=== PATIENT | female | born 1965 | race Asian ===

== ENCOUNTER 2022-10-05 14:04 | Outpatient (REF) | payer OTHER, SELFPAY | END 2022-10-05 14:05 | disposition home or self-care (01) | LOC: HO.MDS 14:04 | PROVIDERS: Visit Provider Internal Medicine | DX: D50.9 Iron deficiency anemia, unspecified (principal) | CPT/HCPCS: 96365; J1756 ==

== ENCOUNTER 2022-10-07 14:00 | Outpatient (REF) | payer OTHER, SELFPAY | END 2022-10-07 14:01 | disposition home or self-care (01) | LOC: HO.MDS 14:00 | PROVIDERS: Visit Provider Internal Medicine | DX: D50.8 Other iron deficiency anemias (principal) | CPT/HCPCS: 96365; J1756 ==

== ENCOUNTER 2022-10-09 11:07 | Outpatient (REF) | payer OTHER, SELFPAY | END 2022-10-09 11:08 | disposition home or self-care (01) | LOC: HO.MDS 11:07 | PROVIDERS: Visit Provider Internal Medicine | DX: D50.8 Other iron deficiency anemias (principal) | CPT/HCPCS: 96365; J1756 ==

== ENCOUNTER 2022-10-12 13:46 | Outpatient (REF) | payer OTHER, SELFPAY | END 2022-10-12 13:47 | disposition home or self-care (01) | LOC: HO.MDS 13:46 | PROVIDERS: Visit Provider Internal Medicine | DX: D50.8 Other iron deficiency anemias (principal) | CPT/HCPCS: 96365; J1756 ==

== ENCOUNTER 2022-10-16 13:50 | Outpatient (REF) | payer OTHER, SELFPAY | END 2022-10-16 13:51 | disposition home or self-care (01) | LOC: HO.MDS 13:50 | PROVIDERS: Visit Provider Internal Medicine | DX: D50.8 Other iron deficiency anemias (principal) | CPT/HCPCS: 96365; J1756 ==

== ENCOUNTER 2022-10-19 13:21 | Outpatient (REF) | payer OTHER, SELFPAY | END 2022-10-19 13:22 | disposition home or self-care (01) | LOC: HO.MDS 13:21 | PROVIDERS: Visit Provider Internal Medicine | DX: D50.8 Other iron deficiency anemias (principal) | CPT/HCPCS: 96365; J1756 ==

== ENCOUNTER 2023-02-09 08:21 | Day surgery (SDC) | payer OTHER, SELFPAY ==
[2023-02-04 15:41] VITALS: BMI 25.5
[2023-02-09 08:33] VITALS: BMI 25.0
[2023-02-09 08:42] VITALS: BP 138/74; PULSE 79; RESP 18; TEMP 36.1; O2SAT 99
--- NOTE | 2023-02-09 08:47 | HO.ANESPROP2 ---
Documented by User: Karen Farrar MD 02/09/23 09:07 HPI - Anesthesia Eval Consult details Narrative: upper endo and colon PMFSH Past Medical History Medical History Bipolar disorder Iron deficiency anemia HTN (hypertension) Diabetes Family History Family history of problems with anesthesia: No Surgical History Surgical History H/O colonoscopy History of Problems with Anesthesia: No Social History Social History Patient Tobacco Use Status: Never used Tobacco Use of substances other than those prescribed or required for medical reasons: No Advance Directives: No Advance Directives Information Provided: Yes Meds Allergies Allergy/AdvReac Type Severity Reaction Status Date / Time No Known Allergies Allergy Verified 02/04/23 15:40 Home Medications Medication Instructions Recorded Confirmed Last Taken Type amlodipine 5 mg tablet 5 mg PO DAILY 02/04/23 02/09/23 02/09/23 07:00 History 5 aripiprazole 5 mg tablet 2.5 mg PO DAILY 02/04/23 02/04/23 Unknown History cyanocobalamin (vitamin B-12) 500 500 mcg PO DAILY 02/04/23 02/04/23 Unknown History mcg tablet (Vitamin B-12) ferrous sulfate 325 mg (65 mg 325 mg PO 3XW 02/04/23 02/04/23 Unknown History iron) tablet glipizide 2.5 mg tablet, extended 2.5 mg PO DAILY 02/04/23 02/04/23 Unknown History release 24 hr losartan 100 1 tab PO DAILY 02/04/23 02/04/23 Unknown History mg-hydrochlorothiazide 25 mg tablet metformin 1,000 mg tablet 1,000 mg PO BID 02/04/23 02/04/23 Unknown History Exam Airway Mallampati Class: II TM Dist: >3cm Neck ROM: Full Heart: rrr Lungs: cta Assessment and Plan Assessment Anesthesia Assessment: Anesthesia Plan Discussed and Chart Reviewed Final Anesthetic Review Family History of Problems with Anesthesia: No History of Problems with Anesthesia: No NPO: Yes ASA Class: II Final Preanesthetic Review: No Changes in Pt Med Stat, Meds/Allgs Chart Reviewed, Consent Obtained/Reviewed and Anes Risks/Benef Reviewed Patient Risk: Low Procedure Risk: Low Anesthetic Plan Anesthetic Plan: MAC: Disposition: Standard PACU Documented by User: Ayesha Chilel MD [facility] Past Medical History Medical History Bipolar disorder Iron deficiency anemia HTN (hypertension) Diabetes Surgical History Surgical History H/O colonoscopy Social History Social History Patient Tobacco Use Status: Never used Tobacco Use of substances other than those prescribed or required for medical reasons: No Advance Directives: No Advance Directives Information Provided: Yes Meds Allergies Allergy/AdvReac Type Severity Reaction Status Date / Time No Known Allergies Allergy Verified 02/04/23 15:40 Home Medications Medication Instructions Recorded Confirmed Last Taken Type amlodipine 5 mg tablet 5 mg PO DAILY 02/04/23 02/09/23 02/09/23 07:00 History 5 aripiprazole 5 mg tablet 2.5 mg PO DAILY 02/04/23 02/04/23 Unknown History cyanocobalamin (vitamin B-12) 500 500 mcg PO DAILY 02/04/23 02/04/23 Unknown History mcg tablet (Vitamin B-12) ferrous sulfate 325 mg (65 mg 325 mg PO 3XW 02/04/23 02/04/23 Unknown History iron) tablet glipizide 2.5 mg tablet, extended 2.5 mg PO DAILY 02/04/23 02/04/23 Unknown History release 24 hr losartan 100 1 tab PO DAILY 02/04/23 02/04/23 Unknown History mg-hydrochlorothiazide 25 mg tablet metformin 1,000 mg tablet 1,000 mg PO BID 02/04/23 02/04/23 Unknown History Exam Height,Weight and Vital Signs: Height 5 ft 5 in Weight 68.039 kg Last Vital Signs Temp 97 F 11/21/23 08:42 Pulse 79 02/09/23 08:42 Resp 18 02/09/23 08:42 BP 138/74 02/09/23 08:42 Pulse Ox 99 02/09/23 08:42 O2 Del Method Room Air 02/09/23 08:42
--- NOTE | 2023-02-09 09:10 | MHC.SHP ---
Pre-Procedural Eval Section A Date of Service: 02/09/23 Section B Chief Complaint: Iron deficiency anemia, unspecified Details of Present Illness: see H&P no changes Relevant Family History (Specify if Yes): No Relevant Social History: None Present Medications: see Short Stay Collaborative assessment Medical History: No relevant PMH History of Previous Operations: No relevant previous surgery Allergies: Allergies Allergy/AdvReac Type Severity Reaction Status Date / Time No Known Allergies Allergy Verified 02/04/23 15:40 Review of Systems Sugical H&P ROS: Negative: Constitution, Cardiovascular, Respiratory, Neurological, Psychiatric, Hem-Onc, Allergic/Immunologic, Gastrointestinal, Genitourinary, Musculoskeletal, Integumentary, Endocrine and Eyes/Ears/Nose/Throat Exam Surgical H&P Exam: Normal: HEENT, Normal: Heart, Normal: Lungs, Normal: Extremities, Normal: Abdomen, Normal: Skin and Normal: Neurological Plan Diagnosis/Plan: Unchanged I have reviewed the history and physical and performed a pertinent physical examination on my patient. No changes have occurred unless specified. Time Spent With Patient Time: Total time managing care of this patient today ____ minutes.
[2023-02-09 09:50] VITALS: BP 91/64; PULSE 81; RESP 18; TEMP 36.1; O2SAT 100
[2023-02-09 10:05] VITALS: BP 117/76; PULSE 82; RESP 16; O2SAT 98
[2023-02-09 10:20] VITALS: BP 127/65; PULSE 70; RESP 16; TEMP 36.2; O2SAT 98
--- NOTE | 2023-02-09 10:20 | OP_ITS ---
DATE OF SERVICE: 02/09/2023 SURGEON: Armani German MD INDICATIONS: Iron deficiency anemia. PREOPERATIVE DIAGNOSIS: POSTOPERATIVE DIAGNOSIS: PROCEDURE PERFORMED: Upper endoscopy with biopsy, colonoscopy to the terminal ileum. ESTIMATED BLOOD LOSS: COMPLICATIONS: ANESTHESIA: Monitored anesthesia care. ASSISTANTS: SPECIMENS: DESCRIPTION OF PROCEDURE: A history and physical performed. The risks and benefits of the procedure were explained to the patient. Informed consent was obtained. The patient was placed in the left lateral decubitus position. The Olympus video gastroscope was introduced into the esophagus, stomach, and duodenum. Examination was performed. The scope was removed. She was repositioned for colonoscopy. Digital rectal exam was performed and was found to be normal. The Olympus pediatric video colonoscope was introduced into the rectum and advanced to the cecum. The cecum was identified by transillumination, palpation, and identification of ileocecal valve. Examination was performed and the scope was removed. She tolerated both procedures well and was returned to recovery area in stable condition. FINDINGS: Upper endoscopy: 1. Esophagus: The esophagus was normal. There was no esophagitis. 2. Stomach: The stomach was normal. There was no gastritis. Antral biopsies were obtained to evaluate for H pylori. 3. Duodenum: The bulb and 2nd portion were normal. Random biopsies were obtained from the 2nd portion. Colonoscopy: The terminal ileum was normal. The visualized colonic mucosa was normal. The quality of the prep was good. No polyps were identified. Retroflexed examination showed some small internal hemorrhoids. IMPRESSION: 1. Normal upper endoscopy. 2. Normal colonoscopy. RECOMMENDATION: Follow up the biopsy results. 10 year screening colonoscopy. MD EULA Campos/DESMONDL / [id number] MTDD
== END 2023-02-09 10:43 | disposition home or self-care (01) ==
PROVIDERS: PCP Internal Medicine; Visit Provider Internal Medicine Gastroenterology
PROC: (CPT 43239; principal; 2023-02-09 09:30)
DX: D50.9 Iron deficiency anemia, unspecified (principal); Z12.11 Encounter for screening for malignant neoplasm of colon; K64.8 Other hemorrhoids; E11.9 Type 2 diabetes mellitus without complications; I10 Essential (primary) hypertension; Z79.899 Other long term (current) drug therapy
CPT/HCPCS: 43239; 45378; 88305; 88342; J2250; J2704

== ENCOUNTER 2023-07-26 06:09 | Day surgery (SDC) | payer OTHER, SELFPAY ==
--- NOTE | 2023-07-22 14:38 | HO.ANESPROP2 ---
Documented by User: Susan Cameron NP 07/22/23 14:39 HPI - Anesthesia Eval Consult details Narrative: 57yo F for Right Cataract Multifocal with IOL Insertion No previous cataract on record PMFSH Past Medical History Medical History (Updated 07/23/23 @ 11:06 by Char Vang RN) Cataract Mixed hyperlipidemia Spongiotic dermatitis Vitamin B 12 deficiency History of traumatic head injury Obesity Depression Bipolar disorder Iron deficiency anemia HTN (hypertension) Diabetes Family History Family history of problems with anesthesia: No Surgical History Surgical History (Updated 07/23/23 @ 11:01 by Char Vang RN) Hx of biopsy H/O colonoscopy History of Problems with Anesthesia: No Social History Social History Patient Tobacco Use Status: Never used Tobacco Use of substances other than those prescribed or required for medical reasons: No Are you DNR?: No Advance Directives: No Advance Directives Information Provided: Yes Advance Directives on File: No Recently lost weight without trying: No Eating poorly because of decreased appetite: No Nutrition Risks: No Nutritional Risk Patient : No : No Meds Allergies Allergy/AdvReac Type Severity Reaction Status Date / Time No Known Allergies Allergy Verified 02/04/23 15:40 Home Medications ?Medication ?Instructions ?Recorded ?Confirmed ?Last Taken ?Type amlodipine 5 mg tablet 5 mg PO DAILY 02/04/23 07/23/23 02/09/23 07:00 History 5 aripiprazole 5 mg tablet 2.5 mg PO DAILY 02/04/23 07/23/23 Unknown History cyanocobalamin (vitamin B-12) 500 500 mcg PO DAILY 02/04/23 07/23/23 Unknown History mcg tablet (Vitamin B-12) glipizide 2.5 mg tablet, extended 2.5 mg PO DAILY 02/04/23 07/23/23 Unknown History release 24 hr metformin 1,000 mg tablet 1,000 mg PO BID 02/04/23 07/23/23 Unknown History aspirin 81 mg tablet,delayed 81 mg PO DAILY 07/23/23 07/23/23 Unknown History release pravastatin 40 mg tablet 40 mg PO DAILY 07/23/23 07/23/23 Unknown History Assessment and Plan Assessment Anesthesia Assessment: Chart Reviewed Final Anesthetic Review Family History of Problems with Anesthesia: No History of Problems with Anesthesia: No Documented by User: Nick Malave MD 07/26/23 07:33 PMFSH Past Medical History Medical History (Updated 07/23/23 @ 11:06 by Char Vang RN) Cataract Mixed hyperlipidemia Spongiotic dermatitis Vitamin B 12 deficiency History of traumatic head injury Obesity Depression Bipolar disorder Iron deficiency anemia HTN (hypertension) Diabetes Surgical History Surgical History (Updated 07/23/23 @ 11:01 by Char Vang RN) Hx of biopsy H/O colonoscopy History of Problems with Anesthesia: Yes Social History Social History Patient Tobacco Use Status: Never used Tobacco Use of substances other than those prescribed or required for medical reasons: No Are you DNR?: No Advance Directives: No Advance Directives Information Provided: Yes Advance Directives on File: No Recently lost weight without trying: No Eating poorly because of decreased appetite: No Nutrition Risks: No Nutritional Risk Patient : No : No Meds Allergies Allergy/AdvReac Type Severity Reaction Status Date / Time No Known Allergies Allergy Verified 02/04/23 15:40 Home Medications ?Medication ?Instructions ?Recorded ?Confirmed ?Last Taken ?Type amlodipine 5 mg tablet 5 mg PO DAILY 02/04/23 07/23/23 02/09/23 07:00 History 5 aripiprazole 5 mg tablet 2.5 mg PO DAILY 02/04/23 07/23/23 Unknown History cyanocobalamin (vitamin B-12) 500 500 mcg PO DAILY 02/04/23 07/23/23 Unknown History mcg tablet (Vitamin B-12) glipizide 2.5 mg tablet, extended 2.5 mg PO DAILY 02/04/23 07/23/23 Unknown History release 24 hr metformin 1,000 mg tablet 1,000 mg PO BID 02/04/23 07/23/23 Unknown History aspirin 81 mg tablet,delayed 81 mg PO DAILY 07/23/23 07/23/23 Unknown History release pravastatin 40 mg tablet 40 mg PO DAILY 07/23/23 07/23/23 Unknown History Exam Airway Mallampati Class: III TM Dist: <=3cm Neck ROM: Full Loose/Missing/Broken Teeth: No Heart: rrr Lungs: cta Assessment and Plan Final Anesthetic Review History of Problems with Anesthesia: Yes NPO: Yes ASA Class: II and III Final Preanesthetic Review: No Changes in Pt Med Stat, Meds/Allgs Chart Reviewed, Consent Obtained/Reviewed and Anes Risks/Benef Reviewed Patient Risk: Intermediate Procedure Risk: Low Anesthetic Plan Anesthetic Plan: MAC: Disposition: Standard PACU
[2023-07-23 11:07] VITALS: BMI 28.9
[2023-07-26 06:32] VITALS: BP 142/72; PULSE 74; RESP 18; TEMP 36.1; O2SAT 99; BMI 25.0
[2023-07-26 06:49] LABS: Glucose, Whole Blood 167 mg/dL (60-115)
[2023-07-26] MEDS: Lactated Ringers 500 ML 50 ML IV (06:55)
[2023-07-26] MEDS: Tetracaine HCl/PF 0.5% Oph Sol 4 ML DROPS 1 DROP EYE-RIGHT (06:56)
[2023-07-26] MEDS: Ketorolac Tromethamine 0.5% Op 10 ML DROPS 1 DROP EYE-RIGHT ×3 (06:56→07:04)
[2023-07-26] MEDS: Phenylephrine HCL 2.5% Oph SoL 2 ML BOTTLE 1 DROP EYE-RIGHT ×3 (06:56→07:03)
[2023-07-26] MEDS: Cyclopentolate 1 % Ophth Sol 2 ML DRPBTL 1 DROP EYE-RIGHT ×3 (06:57→07:04)
[2023-07-26] MEDS: Tropicamide 1 % Ophth Sol 3 ML BTL 1 DROP EYE-RIGHT ×3 (06:57→07:04)
--- NOTE | 2023-07-26 07:34 | P.CONAN_ITS ---
[facility] Past Medical History Medical History (Updated 07/23/23 @ 11:06 by Char Vang RN) Cataract Mixed hyperlipidemia Spongiotic dermatitis Vitamin B 12 deficiency History of traumatic head injury Obesity Depression Bipolar disorder Iron deficiency anemia HTN (hypertension) Diabetes Family History Family history of problems with anesthesia: No Surgical History Surgical History (Updated 07/23/23 @ 11:01 by Char Vang RN) Hx of biopsy H/O colonoscopy History of Problems with Anesthesia: Yes Social History Social History Patient Tobacco Use Status: Never used Tobacco Use of substances other than those prescribed or required for medical reasons: No Are you DNR?: No Advance Directives: No Advance Directives Information Provided: Yes Advance Directives on File: No Recently lost weight without trying: No Eating poorly because of decreased appetite: No Nutrition Risks: No Nutritional Risk Patient : No : No Meds Allergies Allergy/AdvReac Type Severity Reaction Status Date / Time No Known Allergies Allergy Verified 02/04/23 15:40 Active Medications: Current Medications Lactated Ringer's (Lr) 500 mls @ 50 mls/hr IV .Q10H TAVO Stop: 07/26/23 16:14 Last Admin: 07/26/23 06:55 Dose: 50 mls/hr Povidone Iodine (Povidone Iodine 5 % Oph Soln 30 Ml Bottle) 1 appl EYE-RIGHT PREOP PRN PRN Reason: Pre-Op Surgical Implant Prophy Home Medications ?Medication ?Instructions ?Recorded ?Confirmed ?Last Taken ?Type amlodipine 5 mg tablet 5 mg PO DAILY 02/04/23 07/23/23 02/09/23 07:00 History 5 aripiprazole 5 mg tablet 2.5 mg PO DAILY 02/04/23 07/23/23 Unknown History cyanocobalamin (vitamin B-12) 500 500 mcg PO DAILY 02/04/23 07/23/23 Unknown History mcg tablet (Vitamin B-12) glipizide 2.5 mg tablet, extended 2.5 mg PO DAILY 02/04/23 07/23/23 Unknown History release 24 hr metformin 1,000 mg tablet 1,000 mg PO BID 02/04/23 07/23/23 Unknown History aspirin 81 mg tablet,delayed 81 mg PO DAILY 07/23/23 07/23/23 Unknown History release pravastatin 40 mg tablet 40 mg PO DAILY 07/23/23 07/23/23 Unknown History Exam Height,Weight and Vital Signs: Height 5 ft 5 in Weight 68.039 kg Last Vital Signs Temp 96.9 F 07/26/23 06:32 Pulse 74 07/26/23 06:32 Resp 18 07/26/23 06:32 BP 142/72 H 07/26/23 06:32 Pulse Ox 99 07/26/23 06:32 O2 Del Method Room Air 07/26/23 06:32 Pertinent Lab Results Pertinent Lab Results: Laboratory Tests 07/26/23 06:45 POC Glucose 167 H Airway Mallampati Class: III TM Dist: <=3cm Neck ROM: Full Partial: Upper and Lower Loose/Missing/Broken Teeth: Yes Heart: rrr Lungs: cta Assessment and Plan Final Anesthetic Review Family History of Problems with Anesthesia: No History of Problems with Anesthesia: Yes NPO: Yes ASA Class: III Final Preanesthetic Review: No Changes in Pt Med Stat, Meds/Allgs Chart Reviewed, Consent Obtained/Reviewed and Anes Risks/Benef Reviewed Patient Risk: Intermediate Procedure Risk: Low Anesthetic Plan Anesthetic Plan: MAC: Disposition: Standard PACU
--- NOTE | 2023-07-26 07:36 | MHC.SHP ---
Pre-Procedural Eval Section A - 24 Hr Update-Section A only Date of Service: 07/26/23 The patient is an INPATIENT: No Changes since office visit: No Cold of Flu in the past 2 weeks, No New Medical Problems, No Changes in Medication and No Patient answered all questions The patient has been examined within 24 hours of the surgical procedure. The History & Physical has been completed within 30 days and I have reviewed it.: Yes Section B - Complete if H&P > 30 days Chief Complaint: Age-related nuclear cataract, right eye Allergies: Allergies Allergy/AdvReac Type Severity Reaction Status Date / Time No Known Allergies Allergy Verified 02/04/23 15:40 Plan Diagnosis/Plan: Unchanged I have reviewed the history and physical and performed a pertinent physical examination on my patient. No changes have occurred unless specified. Time Spent With Patient Time: Total time managing care of this patient today ____ minutes.
--- NOTE | 2023-07-26 07:37 | P.PCNO_ITS ---
Ophthalmology Procedure Procedure Date of Service: 07/26/23 Ophthalmology Viscoelastic: Healon Duet Dual Pack Pro Ophthalmology Lenses: TECNIS ZXR00 (22) Procedure Notes: PREOPERATIVE DIAGNOSIS: Decreased visual acuity right eye secondary to cataract POSTOPERATIVE DIAGNOSIS: Same PROCEDURE: Right cataract extraction with multifocal intraocular lens insertion SURGEON: Karan Mejia M.D. ANESTHESIA: Topical/MAC ESTIMATED BLOOD LOSS: None COMPLICATIONS: None After obtaining informed consent, the patient was brought to the operating room suite and placed in the supine position. After adequate sedation per anesthesia, topical drops of Tetracaine were given to the right eye. The eye was then prepped and draped in the usual sterile fashion. The operating room microscope was then positioned over the operative eye and a lid speculum placed. A paracentesis was created. Viscoelastic was then instilled into the anterior chamber. A three plane incision was then created temporally, utilizing a 2.85 mm keratome. Capsulotomy forceps were then utilized to create a circular tear capsulotomy. Hydrodissection and hydrodelineation were carried out until adequate mobilization of the nucleus occurred. Phacoemulsification was then utilized to remove the dense central nucl eus followed by removal of the cortical material utilizing the automated aspiration irrigation unit. Viscoelastic was instilled into the posterior capsular bag followed by placement of a multifocal posterior chamber intraocular lens without difficulty. The residual Viscoelastic was then removed utilizing the automated IA machine. The wound was checked and found to be watertight. The patient tolerated the procedure well and the lid speculum was removed. Intracameral injection of Vigamox 0.1 mL followed by a subtenon injection of Kenalog-40 0.2 mL were administered. The patient will be seen in the a.m.
[2023-07-26 08:09] VITALS: BP 126/63; PULSE 69; RESP 12; TEMP 36.4; O2SAT 100
[2023-07-26 08:24] VITALS: BP 137/64; PULSE 75; RESP 20; TEMP 36.1; O2SAT 100
== END 2023-07-26 08:57 | disposition home or self-care (01) ==
PROVIDERS: PCP Internal Medicine; Visit Provider Ophthalmology
PROC: (CPT 66984; principal; 2023-07-26 07:30)
DX: H25.11 Age-related nuclear cataract, right eye (principal); H52.4 Presbyopia; H18.413 Arcus senilis, bilateral; H11.133 Conjunctival pigmentations, bilateral; H11.153 Pinguecula, bilateral; I10 Essential (primary) hypertension; E11.9 Type 2 diabetes mellitus without complications; F31.9 Bipolar disorder, unspecified; Z79.84 Long term (current) use of oral hypoglycemic drugs; Z79.899 Other long term (current) drug therapy
CPT/HCPCS: 66984; 82947; J2250; J3010; J3301; V2788

== ENCOUNTER 2023-08-09 10:25 | Day surgery (SDC) | payer OTHER, SELFPAY ==
[2023-07-23 11:12] VITALS: BMI 28.9
--- NOTE | 2023-08-06 09:58 | HO.ANESPROP2 ---
Documented by User: Susan Cameron NP 08/06/23 09:59 HPI - Anesthesia Eval Consult details Narrative: 57yo F for Left Cataract Multifocal with IOL Insertion PCP cleared Right eye 07/26/23: Fent 50, Midaz 2, Zofran 4 PMFSH Past Medical History Medical History Cataract Mixed hyperlipidemia Spongiotic dermatitis Vitamin B 12 deficiency History of traumatic head injury Obesity Depression Bipolar disorder Iron deficiency anemia HTN (hypertension) Diabetes Family History Family history of problems with anesthesia: No Surgical History Surgical History Hx of biopsy H/O colonoscopy History of Problems with Anesthesia: Yes Social History Social History Patient Tobacco Use Status: Never used Tobacco Use of substances other than those prescribed or required for medical reasons: No Are you DNR?: No Advance Directives: No Advance Directives Information Provided: Yes Advance Directives on File: No Recently lost weight without trying: No Eating poorly because of decreased appetite: No Nutrition Risks: No Nutritional Risk Patient : No : No Meds Allergies Allergy/AdvReac Type Severity Reaction Status Date / Time No Known Allergies Allergy Verified 08/09/23 14:28 Home Medications ?Medication ?Instructions ?Recorded ?Confirmed ?Last Taken ?Type amlodipine 5 mg tablet 5 mg PO DAILY 02/04/23 08/09/23 08/08/23 History aripiprazole 5 mg tablet 2.5 mg PO DAILY 02/04/23 08/09/23 08/08/23 History cyanocobalamin (vitamin B-12) 500 500 mcg PO DAILY 02/04/23 08/09/23 07/25/23 History mcg tablet (Vitamin B-12) glipizide 2.5 mg tablet, extended 2.5 mg PO DAILY 02/04/23 08/09/23 08/08/23 History release 24 hr metformin 1,000 mg tablet 1,000 mg PO BID 02/04/23 08/09/23 08/08/23 History aspirin 81 mg tablet,delayed 81 mg PO DAILY 07/23/23 08/09/23 08/08/23 History release pravastatin 40 mg tablet 40 mg PO DAILY 05/06/1208/09/23 08/08/23 History Exam Height,Weight and Vital Signs: Height 5 ft 2 in Weight 71.668 kg Assessment and Plan Assessment Anesthesia Assessment: Chart Reviewed Final Anesthetic Review Family History of Problems with Anesthesia: No History of Problems with Anesthesia: Yes Documented by User: Araceli Jacobs MD 08/09/23 15:11 PMFSH Past Medical History Medical History Cataract Mixed hyperlipidemia Spongiotic dermatitis Vitamin B 12 deficiency History of traumatic head injury Obesity Depression Bipolar disorder Iron deficiency anemia HTN (hypertension) Diabetes Surgical History Surgical History Hx of biopsy H/O colonoscopy Social History Social History Patient Tobacco Use Status: Never used Tobacco Use of substances other than those prescribed or required for medical reasons: No Are you DNR?: No Advance Directives: No Advance Directives Information Provided: Yes Advance Directives on File: No Recently lost weight without trying: No Eating poorly because of decreased appetite: No Nutrition Risks: No Nutritional Risk Patient : No : No Meds Allergies Allergy/AdvReac Type Severity Reaction Status Date / Time No Known Allergies Allergy Verified 08/09/23 14:28 Home Medications ?Medication ?Instructions ?Recorded ?Confirmed ?Last Taken ?Type amlodipine 5 mg tablet 5 mg PO DAILY 02/04/23 08/09/23 08/08/23 History aripiprazole 5 mg tablet 2.5 mg PO DAILY 02/04/23 08/09/23 08/08/23 History cyanocobalamin (vitamin B-12) 500 500 mcg PO DAILY 02/04/23 08/09/23 07/25/23 History mcg tablet (Vitamin B-12) glipizide 2.5 mg tablet, extended 2.5 mg PO DAILY 02/04/23 08/09/23 08/08/23 History release 24 hr metformin 1,000 mg tablet 1,000 mg PO BID 02/04/23 08/09/23 08/08/23 History aspirin 81 mg tablet,delayed 81 mg PO DAILY 07/23/23 08/09/23 08/08/23 History release pravastatin 40 mg tablet 40 mg PO DAILY 07/23/23 08/09/23 08/08/23 History Exam Airway Mallampati Class: II (top front implants ) TM Dist: >3cm Neck ROM: Full Heart: rrr Lungs: cta Assessment and Plan Assessment Anesthesia Assessment: Anesthesia Plan Discussed Final Anesthetic Review NPO: Yes ASA Class: II Final Preanesthetic Review: No Changes in Pt Med Stat, Meds/Allgs Chart Reviewed and Consent Obtained/Reviewed Patient Risk: Low Procedure Risk: Low Anesthetic Plan Anesthetic Plan: MAC: Disposition: Standard PACU
[2023-08-09] MEDS: Tetracaine HCl/PF 0.5% Oph Sol 4 ML DROPS 1 DROP EYE-LEFT (14:29)
[2023-08-09] MEDS: Cyclopentolate 1 % Ophth Sol 2 ML DRPBTL 1 DROP EYE-LEFT ×3 (14:30→14:46)
[2023-08-09] MEDS: Tropicamide 1 % Ophth Sol 3 ML BTL 1 DROP EYE-LEFT ×3 (14:32→14:48)
[2023-08-09 14:33] VITALS: BP 128/77; PULSE 80; RESP 18; TEMP 36.6; O2SAT 99
[2023-08-09] MEDS: Ketorolac Tromethamine 0.5% Op 10 ML DROPS 1 DROP EYE-LEFT ×3 (14:34→14:50)
[2023-08-09] MEDS: Phenylephrine HCL 2.5% Oph SoL 2 ML BOTTLE 1 DROP EYE-LEFT ×3 (14:36→14:52)
[2023-08-09 14:37] LABS: Glucose, Whole Blood 128 mg/dL (60-115)
[2023-08-09] MEDS: Lactated Ringers 500 ML 50 ML IV (14:38)
--- NOTE | 2023-08-09 16:50 | MHC.SHP ---
Pre-Procedural Eval Section A - 24 Hr Update-Section A only Date of Service: 08/09/23 The patient is an INPATIENT: No Changes since office visit: No Cold of Flu in the past 2 weeks, No New Medical Problems, No Changes in Medication and No Patient answered all questions The patient has been examined within 24 hours of the surgical procedure. The History & Physical has been completed within 30 days and I have reviewed it.: Yes Section B - Complete if H&P > 30 days Chief Complaint: Age-related nuclear cataract, left eye Allergies: Allergies Allergy/AdvReac Type Severity Reaction Status Date / Time No Known Allergies Allergy Verified 08/09/23 14:28 Plan Diagnosis/Plan: Unchanged I have reviewed the history and physical and performed a pertinent physical examination on my patient. No changes have occurred unless specified. Time Spent With Patient Time: Total time managing care of this patient today ____ minutes.
--- NOTE | 2023-08-09 16:50 | HO.PNOPHT ---
Ophthalmology Procedure Procedure Date of Service: 08/09/23 Ophthalmology Viscoelastic: Healon Duet Dual Pack Pro Ophthalmology Lenses: TECNIS ZXR00 (22.5) Procedure Notes: PREOPERATIVE DIAGNOSIS: Decreased visual acuity left eye secondary to cataract POSTOPERATIVE DIAGNOSIS: Same PROCEDURE: Left cataract extraction with multifocal intraocular lens insertion SURGEON: Karan Mejia M.D. ANESTHESIA: Topical/MAC ESTIMATED BLOOD LOSS: None COMPLICATIONS: None After obtaining informed consent, the patient was brought to the operation room suite and placed in the supine position. After adequate sedation per anesthesia, topical drops of Tetracaine were given to the left eye. The eye was then prepped and draped in the usual sterile fashion. The operating room microscope was then positioned over the operative eye and a lid speculum placed. A paracentesis was created. Viscoelastic was then instilled into the anterior chamber. A three plane incision was then created temporally, utilizing a 2.85 mm keratome. Capsulotomy forceps were then utilized to create a circular tear capsulotomy. Hydrodissection and hydrodelineation were carried out until adequate mobilization of the nucleus occurred. Phacoemulsification was then utilized to remove the dense central nucleus followed by removal of the cortical material utilizing the automated aspiration irrigation unit. Viscoelastic was instilled into the posterior capsular bag followed by placement of a multifocal posterior chamber intraocular lens without difficulty. The residual Viscoelastic was then removed utilizing the automated IA machine. The wound was check and found to be watertight. The patient tolerated the procedure well and the lid speculum was removed. Intracameral injection of Vigamox 0.1 mL followed by a subtenon injection of Kenalog-40 0.2 mL were administered. The patient will be seen in the a.m.
[2023-08-09 17:30] VITALS: BP 138/79; PULSE 83; RESP 16; TEMP 36.2; O2SAT 97
== END 2023-08-09 17:30 | disposition home or self-care (01) ==
PROVIDERS: PCP Internal Medicine; Visit Provider Ophthalmology
PROC: (CPT 66984; principal; 2023-08-09 12:30)
DX: H25.12 Age-related nuclear cataract, left eye (principal); H52.4 Presbyopia; H18.413 Arcus senilis, bilateral; H11.133 Conjunctival pigmentations, bilateral; H11.153 Pinguecula, bilateral; E11.9 Type 2 diabetes mellitus without complications; I10 Essential (primary) hypertension; F31.9 Bipolar disorder, unspecified; Z79.84 Long term (current) use of oral hypoglycemic drugs; Z79.899 Other long term (current) drug therapy
CPT/HCPCS: 66984; 82947; J2250; J3010; J3301; V2788

== ENCOUNTER 2024-03-27 09:53 | Outpatient (REF) | payer OTHER, SELFPAY ==
[2024-03-27 10:08] VITALS: BP 187/84; PULSE 84; RESP 16; TEMP 36.1; O2SAT 97; BMI 26.6
--- OUTSIDE RECORDS SUMMARY | 2024-03-27 10:35 | XMS_ITS ---
Author Organization [facility] Address [address] [place] [address] Care Team Providers Care Housecleaner Floor Name Role Phone Fostershekhar Estelita Primary Care Provider Unavailab Armani Holt Jr REASON FOR VISIT fe def anemia PROBLEMS Problem Type ICD Code Onset Dates Problem Status W/U Status Risk SNOMED Code Notes Problem Iron deficiency anemia (D50.9) Active confirmed Iron deficiency anemia (15233194) Encounters Encounter Location Date Provider [place] [facility] [place] [address] [place], [place] [id number] 02/09/2023 Armani German Jr Iron deficiency anemia D50.9 ASSESSMENTS Encounter Date Diagnosis Assessment Notes Treatment Notes Treatment Clinical Notes 02/09/2023 Iron deficiency anemia (ICD-10 - D50.9) PLAN OF TREATMENT No Information
--- OUTSIDE RECORDS SUMMARY | 2024-03-27 10:35 | XMS_ITS ---
Author Organization [facility] Address [address] [place] [address] Care Team Providers Care Hospice Aide Name Role Phone Estelita Glass Primary Care Provider Unavailab Armani Holt Jr Encounters Encounter Location Date Provider Diagnosis [facility] [address] [place] [address] 02/03/2023 Armani German Jr PLAN OF TREATMENT No Information
--- OUTSIDE RECORDS SUMMARY | 2024-03-27 10:35 | XMS_ITS | Patient Health Record ---
Author Organization [facility] Address [address] [place] [address] Care Team Providers Care Professional Nursing Tutor Name Role Phone Fostershekhar Estelita Primary Care Provider UnavailArmani Chowdhury Jr Unavailable ALLERGIES No Known Allergies REASON FOR REFERRAL No Information MEDICATIONS Medication SIG (Take, Route, Frequency, Duration) Notes Start Date End Date Status MiraLax (colon prep) 17 GM/SCOOP mixed with Gatorade or Crystal Light Orally begin at 5:00 p.m. the day before the procedure for 1 day 12/24/2022 Active glipiZIDE ER 2.5 MG TAKE 1 TABLET BY ELIAS TH ONCE DAILY Oral for 90 Active Iron (Ferrous Sulfate) 325 (65 Fe) MG 1 tablet Orally Three times a Week for 30 day(s) Active metFORMIN HCl 1000 MG TAKE 1 TABLET BY M OUTH TWICE DAILY Oral for 90 Active amLODIPine Besylate 5 MG TAKE 1 TABLET B Y MOUTH ONCE DAILY Oral for 90 Active Vitamin B12 500 MCG 1 tablet Orally Once a day for 30 day(s) Active ARIPiprazole 5 MG TAKE 1/2 (ONE-HALF) TABLET BY MOUTH ONCE DAILY Oral for 90 Active Losartan Potassium-HCTZ 100-25 MG TAKE 1 TABLET BY MOUTH ONCE DAILY Oral for 90 Active SOCIAL HISTORY Tobacco Use: Social History Observation Description Date Details (start date - stop date) Never Smoker NA - NA Sex Assigned At : Social History Observation Description Sex Assigned At Unknown Tobacco Use/Smoking Question Answer Notes Patient is a nonsmoker Alcohol Screen Question Answer Notes Did you have a drink containing alcohol in the p ast year? No Points 0 Interpretation Negative PROBLEMS Problem Type ICD Code Onset Dates Problem Status W/U Status Risk SNOMED Code Notes Problem Iron deficiency anemia, unspecified iron deficiency anemia type (D50.9) Active confirmed [id number] Problem Iron deficiency anemia (D50.9) Active confirmed Iron deficiency anemia (63479761) PLAN OF TREATMENT Future Test Test Name Order Date UPPER GI ENDOSCOPY 12/24/2022 COLONOSCOPY 12/24/2022 Insurance Providers Payer Name Payer Address Payer Phone Subscriber Number Group Number Insured Name Patient Relationship to Insured Coverage Start Date Coverage End Date [facility] [address] [place] [address] [id number] TONIO EVANS Self - patient is the insured MEDICAL (GENERAL) HISTORY Medical History History ICD Code Diabetes mellitus type 2 Hypertension Iron deficiency anemia Bipolar disorder B12 deficiency Closed head injury/concussion Surgical History Surgery Date(Month/Year)
--- OUTSIDE RECORDS SUMMARY | 2024-03-27 10:35 | XMS_ITS ---
Author Organization [facility] Address [address] [place] [address] Care Team Providers Care Intravenous Therapy Nurse Name Role Phone Estelita Glass Primary Care Provider Unavailab Armani Holt Jr [phone] REASON FOR VISIT pathology Encounters Encounter Location Date Provider Diagnosis [facility] [address] [place] [address] 02/22/2023 Armani German Jr PLAN OF TREATMENT No Information
== END 2024-03-27 09:54 | disposition home or self-care (01) ==
LOC: HO.MS 09:53
PROVIDERS: PCP Internal Medicine; Visit Provider Ophthalmology
PROC: (CPT 66821; principal; 2024-03-27 12:00)
DX: H26.492 Other secondary cataract, left eye (principal)
CPT/HCPCS: 66821

== ENCOUNTER 2024-06-08 15:08 | Outpatient (REF) | payer OTHER, SELFPAY ==
--- NOTE | ~2024-06-08 | XR_ITS ---
CLINICAL HISTORY: Osteoartitis 3 view right knee Comparison: None Findings: No fractures or dislocations. There are degenerative changes most pronounced in the medial compartment. No joint effusion. No radiopaque foreign body. IMPRESSION: 1. No acute findings. This document has been electronically signed by: Irineo Hodges MD on 06/10/2024 08:18:25
--- NOTE | ~2024-06-08 | XR_ITS ---
CLINICAL HISTORY: Osteoarthritis 3 view left knee Comparison: None Findings: No fractures or dislocations. There are degenerative changes most pronounced in the medial compartment. No joint effusion. No radiopaque foreign body. IMPRESSION: 1. No acute findings. This document has been electronically signed by: Irineo Hodges MD on 06/10/2024 08:18:04
== END 2024-06-08 15:09 | disposition home or self-care (01) ==
LOC: HO.XRAY 15:08
PROVIDERS: PCP Internal Medicine; Visit Provider Internal Medicine
DX: M17.12 Unilateral primary osteoarthritis, left knee (principal)
CPT/HCPCS: 73562

== ENCOUNTER → 2024-06-08 15:20 | Outpatient (BNV) | payer OTHER, SELFPAY | PROVIDERS: PCP Internal Medicine; Visit Provider Specialist | DX: M17.0 Bilateral primary osteoarthritis of knee (principal) | CPT/HCPCS: 73562 ==

== ENCOUNTER 2024-09-01 08:02 | Outpatient (REF) | payer OTHER, SELFPAY ==
--- NOTE | ~2024-09-01 | XR_ITS ---
EXAMINATION: XR KNEE AP STANDING CLINICAL INFORMATION: M25.569 - Pain in unspecified knee COMPARISON: June 08, 2024 TECHNIQUE: AP bilateral standing view of the knees was obtained. FINDINGS: Joint space narrowing involving mostly the medial compartment both knees with associated marginal osteophyte formation both the femoral condyles and the medial tibial plateaus bilaterally. There is sclerosis along the articular surface of the medial tibial plateau and to a lesser extent the medial femoral condyles bilaterally. No acute cortical disruption. There is medial deviation of the distal lower extremity bilaterally. XR/XR knee standing BI IMPRESSION: Medial compartment osteoarthrosis, moderate to severe, bilaterally. Genu varum on a degenerative basis, bilaterally. Electronically signed by: Kirill Martinez MD 09/01/2024 11:18 AM EDT
--- OUTSIDE RECORDS SUMMARY | 2024-09-02 08:05 | XMS_ITS | Referral Summary ---
Author Organization [facility] Address [address] [place] [address] Care Team Providers Care Classroom Coordinator Name Role Phone Estelita Morales Primary Care Provider [phone] Allergies No known active allergies Medications betamethasone [...] on file Insurance on file Care Teams Classroom Coordinator Relationship Specialty Start Date End Date Andrew Estelita [address] [place] [address] PCP - General Internal Medicine 12/01/19
== END 2024-09-01 08:03 | disposition home or self-care (01) ==
LOC: HO.HOSX 08:02
PROVIDERS: Visit Provider Physician Assistant
DX: M17.0 Bilateral primary osteoarthritis of knee (principal); M25.562 Pain in left knee
CPT/HCPCS: 73565; 99202

== ENCOUNTER 2024-09-01 10:36 | Outpatient (AMB) | payer OTHER, SELFPAY ==
[2024-09-01 10:57] VITALS: BMI 26.6
--- NOTE | 2024-09-01 10:57 | A.OFFVIS_ITS ---
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 Patient complains of painful range of motion making it difficult to bend at the knee. She has tried Voltaren gel, and naproxen without relief. Patient was also given a left knee cortisone injection at [facility] walk-in on 07/04/24. Denies prior injuries or surgeries to the left knee. Allergies No Known Allergies Allergy (Verified 09/01/24 11:01) HPI HPI MANAGEMENT ANALYST-Left knee pain: Details: Mejia is a 58 year old female who presents today as a new patient with complaints of Left Knee Pain along the the medial and anterior aspects of the left knee. Patient complains of painful range of motion making it difficult to bend at the knee. She has tried Voltaren gel, and naproxen without relief. Patient was also given a left knee cortisone injection at [facility] walk-in on 07/04/24. Denies prior injuries or surgeries to the left knee. She is active and enjoys yoga. [facility]LY [facility] Medical History (Updated 09/08/24 @ 12:24 by John Ayala MD) Cataract Mixed hyperlipidemia Spongiotic dermatitis Vitamin B 12 deficiency History of traumatic head injury Obesity Depression Bipolar disorder Iron deficiency anemia HTN (hypertension) Diabetes Surgical History Hx of biopsy H/O colonoscopy Social History Patient Tobacco Use Status: Never used Tobacco Physical Exam Vital Signs: BMI result Body Mass Index 26.6 Extrem Other: Varus alignment bilaterally. Tenderness to palpation medial joint line bilateral knees. Antalgic gait with left knee favored more than the right. Results Reviewed Results Reviewed: I personally reviewed relevant radiographs. Severe bilateral knee osteoarthritis right greater than left. Varus pattern Assessment & Plan Assessment & Plan (1) Bilateral primary osteoarthritis of knee: Code(s): M17.0 - Bilateral primary osteoarthritis of knee Category: Medical Plan: This is a very pleasant 58-year-old woman with moderate to severe left knee arthritis and severe right knee arthritis. She is more symptomatic on the left. She has had steroid injections and does not feel that these have been helpful. We discussed treatment options including surgery. At this time we both agreed that she is a good candidate for PRP injections and she would like to explore this further. I will send her to Dr. Marquis in pain management. Plan I will place a referral to Pain Management to discuss PRP Injections. Orders: Orders XR knee standing BI 09/01/24 Zehra Trimble PA-C M25.569 - Pain in unspecified knee Referrals Pain Management Referral John Ayala MD M17.12 - Unilateral primary osteoarthritis, left knee Coding Level of Care Code New Pt Level 3 (14168) Diagnoses Bilateral primary osteoarthritis of knee M17.0
--- OUTSIDE RECORDS SUMMARY | 2024-09-01 11:38 | XMS_ITS | Referral Summary ---
Author Organization [facility] Address [address] [place] [address] Care Team Providers Care Electronic Court Recorder Name Role Phone Estelita Morales Primary Care Provider [phone] Allergies No known active allergies Medications betamethasone dipropionate (DIPROSONE) 0.05 % cream Apply topically to the affected area 2 times a day as needed (Rash). 45 g 11 0 Active amLODIPine (NORVASC) 2.5 mg tablet Take 2.5 mg by mouth once a day. 2 Active ARIPiprazole (ABILIFY) 5 mg tablet Take 5 mg by mouth once a day. 2 Active aspirin 81 mg EC tablet Take 81 mg by mouth nightly. 2 Active glipiZIDE XL (GLUCOTROL XL) 2.5 mg tablet Take 2.5 mg by mouth once a day. 2 Active losartan-hydrochl orothiazide (HYZAAR) 100-25 mg per tablet Take 1 tablet by mouth once a day. 2 Active metFORMIN (GLUCOPHAGE) 1,000 mg tablet Take 1,000 mg by mouth 2 times a day. 2 Active pravastatin (PRAVACHOL) 40 mg tablet Take 40 mg by mouth once a day. 2 Active triamcinolone (KENALOG) 0.5 % cream Apply topically to the affected area 2 times a day. 2 Active betamethasone, augmented, (DIPROLENE) 0.05% ointmentIndicatio ns:Lichen simplex chronicus Apply to affected area on L leg twice daily for 1-3 weeks until improved, then as needed for maintenance. 50 g 2 2 Active triamcinolone acetonide (KENALOG) 0.1% creamIndications: Eczema, unspecified type Apply to affected area on L leg twice daily for 1-3 weeks until improved, then as needed for maintenance. 45 g 3 2 Active Social History Tobacco Use Types Packs/Day Years Used Date Smoking Tobacco: Never Smokeless Tobacco: Never Comments Unknown Sex and Gender Information Value Date Recorded Sex Assigned at Not on file Legal Sex Female 9:12 AM EDT Gender Identity Not on file Sexual Orientation Not on file Last Filed Vital Signs Vital Sign Reading Time Taken Comments Blood Pressure - - Pulse - - Temperature - - Respiratory Rate - - Oxygen Saturation - - Inhaled Oxygen Concentration - - Weight 68 kg (150 lb) 12/07/2019 3:15 PM EDT Height 165.1 cm (5' 5 ) 12/07/2019 3:15 PM EDT Body Mass Index 24.96 12/07/2019 3:15 PM EDT Plan of Treatment Not on file Insurance on file Care Teams Electronic Court Recorder Relationship Specialty Start Date End Date Andrew Estelita [address] [place] [address] PCP - General Internal Medicine 12/01/19
== END 2024-09-01 11:35 | disposition home or self-care (01) ==
LOC: HO.HOS 10:36
PROVIDERS: PCP Internal Medicine; Visit Provider Orthopaedic Surgery
DX: M17.0 Bilateral primary osteoarthritis of knee (principal)
CPT/HCPCS: 99203

== ENCOUNTER → 2024-09-01 10:45 | Outpatient (BNV) | payer OTHER, SELFPAY | PROVIDERS: Visit Provider Radiology Diagnostic Radiology | DX: M17.0 Bilateral primary osteoarthritis of knee (principal) | CPT/HCPCS: 73565 ==

== ENCOUNTER 2024-10-02 08:53 | Outpatient (AMB) | payer OTHER, SELFPAY ==
[2024-10-02 08:56] VITALS: BMI 26.6
--- NOTE | 2024-10-02 08:56 | MHC.OFFVIS ---
Vital Signs 10/02/24 08:56 Height 5 ft 3 in Weight 150 lb BMI 26.6 Intake Visit Reasons: OV - Right Knee OA - PRP Denied Intake Note: Mejia is a 58 year old female who presents today for a follow up of her Bilateral Knee OA. Right is worse than the Left. At her last visit she was referred to Pain Management for Right Knee PRP injections, unfortunately insurance denied the injection. Today she presents today discuss alternative treatment options as previous cortisone injections were not helpful. Allergies No Known Allergies Allergy (Verified 10/02/24 09:00) HPI HPI OV - Right Knee OA - PRP Denied: Details: Mejia is a 58 year old female who presents today for a follow up of her Bilateral Knee OA. Right is worse than the Left. At her last visit she was referred to Pain Management for Right Knee PRP injections, unfortunately insurance denied the injection. Today she presents today discuss alternative treatment options as previous cortisone injections were not helpful. PFS Medical History Cataract Mixed hyperlipidemia Spongiotic dermatitis Vitamin B 12 deficiency History of traumatic head injury Obesity Depression Bipolar disorder Iron deficiency anemia HTN (hypertension) Diabetes Surgical History Hx of biopsy H/O colonoscopy Social History Patient Tobacco Use Status: Never used Tobacco Physical Exam Vital Signs: BMI result Body Mass Index 26.6 Extrem Other: Varus alignment bilaterally. Tenderness to palpation medial joint line bilateral knees. Antalgic gait with left knee favored more than the right. Results Reviewed Results Reviewed: I personally reviewed relevant radiographs. Severe bilateral knee osteoarthritis right greater than left. Varus pattern Assessment & Plan Assessment & Plan (1) Bilateral primary osteoarthritis of knee: Code(s): M17.0 - Bilateral primary osteoarthritis of knee Category: Medical Plan: This is a 58-year-old woman with left knee osteoarthritis. We have discussed injections. She does not want to continue more steroid injections as they have not been helpful in his interested in PRP. At our institution we do not utilize PRP for [facility] patients according to our administration therefore my hands are tied. I have referred her to an outside orthopedist who may be willing to inject her. She can follow up as needed. Coding Level of Care Code Est Pt Level 3 (14559) Diagnoses Bilateral primary osteoarthritis of knee M17.0
--- OUTSIDE RECORDS SUMMARY | 2024-10-02 09:03 | XMS_ITS | Referral Summary ---
Author Organization [facility] Address [address] [place] [address] Care Team Providers Care Anesthesiology Teacher Name Role Phone Estelita Morales Primary Care Provider Allergies No known active allergies Medications betamethasone [...] on file Insurance on file Care Teams Anesthesiology Teacher Relationship Specialty Start Date End Date Andrew Estelita [address] [place] [address] PCP - General Internal Medicine 12/01/19
--- OUTSIDE RECORDS SUMMARY | 2024-10-02 09:04 | XMS_ITS | Patient Health Record ---
Author Organization [facility] Address [address] [place] [address] Care Team Providers Care Dye Expert Name Role Phone Fostershekhar Estelita Primary Care Provider UnavailArmani Chowdhury Jr Unavailable Allergies No Known Allergies Reason For Referral No Information Medications Medication SIG (Take, Route, Frequency, Duration) Notes [...] MOUTH ONCE DAILY Oral for 90 Active Social History Tobacco Use: Social History Observation Description Date Details (start date - stop date) Never Smoker NA - NA Tobacco Use/Smoking Question Answer Notes Patient is a nonsmoker Alcohol Screen Question Answer Notes Did you have a drink containing alcohol in the p ast year? No Points 0 Interpretation Negative Problems Problem Type SNOMED Code ICD Code Onset Dates Problem Status W/U Status Risk Notes Problem Iron deficiency anemia (D50.9) Active confirmed Problem [id number] Iron deficiency anemia, unspecified iron deficiency anemia type (D50.9) Active confirmed Plan Of Treatment Future Test Test Name Order Date UPPER GI ENDOSCOPY 12/24/2022 COLONOSCOPY 12/24/2022 Insurance Providers Payer Name Payer Address Payer Phone Subscriber Number Group Number Insured Name Patient Relationship to Insured Coverage Start Date Coverage End Date [facility] [address] [place] [address] [id number] TONIO EVANS Self - patient is the insured Medical (General) History Medical History History ICD Code Diabetes mellitus type 2 Hypertension Iron deficiency anemia Bipolar disorder B12 deficiency Closed head injury/concussion Surgical History Surgery Date(Month/Year)
== END 2024-10-02 09:20 | disposition home or self-care (01) ==
LOC: HO.HOS 08:54
PROVIDERS: Visit Provider Orthopaedic Surgery
DX: M17.0 Bilateral primary osteoarthritis of knee (principal)
CPT/HCPCS: 99213

== ENCOUNTER → 2024-10-02 08:53 | Outpatient (BNVA) | payer OTHER, SELFPAY | PROVIDERS: Visit Provider Orthopaedic Surgery | DX: M17.0 Bilateral primary osteoarthritis of knee (principal) | CPT/HCPCS: 99212 ==

== ENCOUNTER 2025-03-05 09:15 | Outpatient (AMB) | payer OTHER, SELFPAY ==
--- NOTE | 2025-03-05 09:24 | MHC.OFFVIS ---
Intake Visit Reasons: OV - Left Knee OA Intake Note: Mejia is a 59 year old female who presents today for a follow up of her Bilateral Knee OA. Right > Left. She has tried and failed cortisone injections, and was referred for PRP with Pain Management - unfortunately they are not able to administer PRP for [facility] patients . Today she would like to discuss alternative treatments like gel Allergies No Known Allergies Allergy (Verified 10/02/24 09:00) HPI HPI OV - Left Knee OA: Details: Mejia is a 59 year old female who presents today for a follow up of her Bilateral Knee OA. Right > Left. She has tried and failed cortisone injections, and was referred for PRP with Pain Management - unfortunately they are not able to administer PRP for [facility] patients . Today she would like to discuss alternative treatments like gel HPI Comments Details: Interval History The patient is a 59-year-old female presenting with follow-up for left knee osteoarthritis. She reports experiencing less pain in her left knee since the last visit, although occasional pain persists on the medial side of the knee. The patient has been managing her symptoms with Aleve, which she states has been effective in reducing her pain. She describes having a mild varus alignment of the knee, which contributes to the medial joint line tenderness. The patient acknowledges that while she has pain, it is less severe than before, and she is not currently interested in pursuing further interventions such as gel injections or knee replacement. Results [facility] Medical History Cataract Mixed hyperlipidemia Spongiotic dermatitis Vitamin B 12 deficiency History of traumatic head injury Obesity Depression Bipolar disorder Iron deficiency anemia HTN (hypertension) Diabetes Surgical History Hx of biopsy H/O colonoscopy Social History Patient Tobacco Use Status: Never used Tobacco Physical Exam Exam Exam: Physical Exam - Extremities: Full range of motion in the left knee with mild varus alignment and tenderness to palpation on the medial joint line. Assessment & Plan Assessment & Plan (1) Osteoarthritis of left knee: Code(s): M17.12 - Unilateral primary osteoarthritis, left knee Category: Medical Plan Plan 1. Left Knee Osteoarthritis The plan is to continue with conservative management as the patient reports improvement in symptoms with Aleve. The patient is advised to monitor her symptoms and report any worsening of pain or function. If symptoms worsen, consider the option of gel injections for further relief. Discussed the possibility of knee replacement surgery if the condition significantly deteriorates and impacts daily activities. Discussion Notes During the visit, the patient and physician discussed the current management of her left knee osteoarthritis. The patient expressed satisfaction with the current level of pain control achieved with Aleve and opted against pursuing further interventions at this time. The physician explained the potential future options, including gel injections and knee replacement surgery, should her symptoms worsen. The patient was advised to monitor her symptoms and contact the clinic if there is any significant change in her condition. Coding Level of Care Code Est Pt Level 3 (48145) Diagnoses Osteoarthritis of left knee M17.12
== END 2025-03-05 09:33 | disposition home or self-care (01) ==
LOC: HO.HOS 09:16
PROVIDERS: PCP Internal Medicine; Visit Provider Orthopaedic Surgery
DX: M17.12 Unilateral primary osteoarthritis, left knee (principal)
CPT/HCPCS: 99213

== ENCOUNTER → 2025-03-05 09:15 | Outpatient (BNVA) | payer OTHER, SELFPAY | PROVIDERS: PCP Internal Medicine; Visit Provider Orthopaedic Surgery | DX: M17.12 Unilateral primary osteoarthritis, left knee (principal) | CPT/HCPCS: 99212 ==